=== PATIENT | female | born 1990 | race Caucasian/White ===

== ENCOUNTER 2024-02-18 15:30 | Emergency (ER) | payer OTHER, SELFPAY ==
[2024-02-18 15:38] VITALS: BP 133/75
--- NOTE | 2024-02-18 16:13 | ED.GENMED ---
History of Present Illness
General
Chief Complaint: Anxiety
Source: patient
Time Seen by Provider: 02/18/24 15:54
History of Present Illness
History of Present Illness:
34yoF with a history of HSV-1 presenting with her for evaluation of facial itching that started earlier today. Patient had a cold sore on the left upper lip about 2 weeks ago which resolved. She started to experience an itching sensation
underneath her bilateral eyes. She was also having some twitching of the right eyelid. She became concerned that she may have a herpes infection in her eye. She went to a local [facility] and she was sent to the ED for evaluation. She denies any
eye pain, photophobia, foreign body sensation, drainage, visual disturbance. No fevers or chills.
Past History
Past History
ED Past Medical History: None; Negative HTN, Hypercholesterolemia, IDDM or NIDDM
ED Past Surgical History: Tonsilectomy
Social History
Tobacco: Non-smoker
Family History
Family History: Negative Early CAD or CAD
Phy Exam
General Physical Exam
General Presentation: well appearing and no apparent distress
General age: appears stated age
General Skin: warm and dry
General Habitus: normal
General Mental: anxious
ENT Exam
ENT Exam: normocephalic
Eye Exam
Eye Exam: PERRL, EOMI, conjunctiva normal, visual iglesias normal and other (Conjunctiva appears normal. No drainage or injection noted. No periorbital swelling. PERRL. EOMs intact. Visual iglesias normal. No dendritic lesions or uptake seen on
fluorescein stain bilaterally. )
Right 20/: 30
Left 20/: 20
Both 20/: 10
Pulmonary Exam
Pulmonary Exam: no respiratory distress
[place] Coma Scale
Eye Opening: Spontaneous
Verbal Response: Oriented
Motor Response: Obeys Commands
GCS Total Score: 15
Skin Exam
Skin Exam: normal color and warm/dry
Psychiatric Exam
Psychiatric Exam: anxious
Course
Orders/Labs/Results
Orders:
Orders
02/18/24 16:12
Visual Acuity- Treatment ONCE
Vital Signs
Initial and Last Documented VS:
Initial Vital Signs
Temp Pulse Resp BP Pulse Ox
98.2 F 77 16 133/75 100
02/18/24 15:38 02/18/24 15:38 02/18/24 15:38 02/18/24 15:38 02/18/24 15:38
Last Documented Vital Signs
Temp Pulse Resp BP Pulse Ox
98.2 F 77 16 133/75 100
02/18/24 15:38 02/18/24 15:38 02/18/24 15:38 02/18/24 15:38 02/18/24 15:38
MDM/Problems Addressed
Differential Diagnosis Includes:
34yoF here with itching underneath her bilateral eyes that started earlier today. Also had some twitching of the eyelid. She had a cold sore 2 weeks ago and wants to make sure she doesn't have a herpes infection of the eye. No eye pain or vision
changes. VSS. Conjunctiva appears normal on exam. Pupillary exam normal and EOMs intact. Visual acuity 20/30 R, 20/20 L. No herpetic lesions seen on fluorescein stain.
Patient provided with reassurance. No clinical evidence of conjunctivitis or herpes keratitis and symptoms have now resolved. She is stable for discharge. Strict ED return precautions discussed and she was discharged in stable condition.
*Critical Care Note
Total Time (30-74mins, 75-104mins- exclusive of procedures): Not Applicable
ED Attending Note
-
Portions of this chart may have been created with voice recognition software.� Occasional wrong word or��sound alike� substitutions may have occurred due to the inherent limitations of voice recognition software.
Discharge Plan
Departure
Patient Disposition: Home (Routine Discharge)
Date of Disposition: 02/18/24
Time of Disposition: 16:25
Patient with high blood pressure during this ER visit?: No
Discharge Problem:
Itching
Instructions: Itchy skin
Prescriptions:
No Action
cetirizine 10 MG tablet
10 mg PO DAILY
dextroamphetamine-amphetamine 10 MG tablet
10 mg PO DAILY
norgestimate-ethinyl estradiol [Ortho Tri-Cyclen (28)] 1 EACH tablet
1 ea PO DAILY
Vitamin A
1 tab PO DAILY
Vitamin C
1 tab PO DAILY
Vitamin D
1 tab PO DAILY
Zinc
1 tab PO DAILY
Referrals:
UNKNOWN - PT DOES,NOT KNOW [Family Provider] -
Activity Restrictions/Additional Instructions:
You may take Benadryl or use Zaditor eye drops as needed for itching.
Return to the ER with any worsening symptoms, new vision change, or severe eye pain.
Interventions
Interventions:
*Risk Screen - Suicide Last Done: 02/18/24 15:41
*General Assessment Last Done: 02/18/24 15:41
*Neglect/Abuse Screening Last Done: 02/18/24 15:41
*ED COVID-19 Vaccine History Last Done: 02/18/24 15:42
*Nursing Disposition Last Done: 02/18/24 16:25
ED-Psychological Assessment Last Done: 02/18/24 16:21
Discharge Date and Time
Discharge Date/Time: 02/18/24 16:43
Print Language: [place]
== END 2024-02-18 16:43 | disposition home or self-care (01) ==
LOC: EMR 15:30
PROVIDERS: EMERGENCY PHYSICIAN Emergency Medicine
DX: L29.9 Pruritus, unspecified (principal)
CPT/HCPCS: 99283